=== PATIENT | female | born 1955 | race Caucasian/White ===

== ENCOUNTER 2025-07-01 11:49 | Inpatient (IN) ==
--- NOTE | 2025-07-01 12:25 | Emergency Department Note ---
Impression & Plan Acute left flank pain, Acute pyelonephritis, Hyperglycemia, Heart block ED Provider Note NAME: BEHZAD BLACKBURN AGE: 69 SEX: F : 1955 ARRIVES VIA: Walk-In INFORMANT: [Patient] ED PROVIDER(S): [John Agosto MD] CHIEF COMPLAINT: Flank pain HISTORY OF PRESENT ILLNESS: The patient is a 69-year-old female who has had 2 weeks of left flank discomfort which is now moving more to the left upper abdomen. The patient did see her doctor's office 2 days ago and was prescribed Valtrex and gabapentin for subclinical herpes zoster. The patient states that now, she thinks that she may be having more issues with constipation than anything. Her last good bowel movement was 5 days ago. She feels bloated. There has been no vomiting, no nausea, no fever, no cough or congestion or chest pain, no urinary complaints. Of note, the patient's blood sugars have been erratic lately, sometimes the values are relatively normal, sometimes they are over 300. PMHx/PSHx/Social Hx: See Below PHYSICAL EXAM: GENERAL: Patient is in no acute distress. HEENT: No acute trauma, normocephalic atraumatic, mucous membranes moist, no nasal congestion. NECK: No stridor, no adenopathy, no meningismus, trachea is midline. LUNGS: Clear to auscultation bilaterally, no wheeze, no rhonchi, breath sounds equal. HEART: 3/6 systolic murmur, regular rate and rhythm. ABDOMEN: Soft, mildly diffusely tender. EXTREMITIES: No cyanosis, full range of motion of all the joints without pain or difficulty. NEUROLOGIC: Oriented x 3, no acute motor or sensory deficits, no focal weakness. SKIN: No jaundice, no diaphoresis. Back: No rash seen. DIFFERENTIAL DIAGNOSIS: Renal colic, herpes zoster, constipation, UTI, pyelonephritis, bowel obstruction, dehydration, among others. EMERGENCY DEPARTMENT PROCEDURES: MEDICAL DECISION MAKING: There is no leukocytosis or concerning anemia. There is a normal platelet count. No bandemia. No renal failure. Glucose was high at 420. No concerning liver enzymes elevation. No evidence for pancreatitis. ECG showed a sinus rhythm with a possible type II second-degree AV block. Cardiac enzyme testing was not consistent with acute cardiac injury. Urinalysis showed findings of infection. Abdominal and pelvis CT did not show any significant constipation, no urinary obstruction or bowel obstruction. On exam, the patient was not toxic or febrile. She was bradycardic and there was a systolic cardiac murmur heard. Patient received IV saline for hydration. She received IV ceftriaxone for the pyelonephritis, she was given IV Tylenol. I did speak with cardiology regarding the ECG findings, for now, monitoring is all that is required, no need for emergent cardiac intervention. I did speak with the patient about her findings, I do think a hospital stay for further cardiac monitoring and IV antibiotic therapy is warranted. I suspect the patient's blood sugar will decrease with her IV fluids and with treatment of her infection. I spoke with case management, the on-call hospitalist was consulted. Prior/Outside records/notes reviewed: None ECG per my interpretation: Indication was abdominal pain. The ECG shows a sinus rhythm with a 2-1 AV conduction with a rate of 49. There is a type II second-degree AV block. There is an incomplete right bundle branch block. LVH is present. 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 No acute ST elevation, no PVCs. The QTc is 401. No previous ECGs for comparison. Continuous Cardiac Monitoring per my interpretation: An order was placed for continuous cardiac monitoring. The monitor shows a rate of 52 with a 2-1 second-degree type II AV block. Imaging/x-ray results per my interpretation: Chronic Medical/Social conditions affecting care: Advanced age. Care/Management discussed with: Cardiology-Dr. Ling. Case management and the on-call hospitalist. Level of care consideration(s): After review of the information above and other included data: --I believe the patient requires escalation of care to admission DISPOSITION: Admission Past Med/Surg History Problem List Heart block (Acute) Hyperglycemia (Acute) Acute pyelonephritis (Acute) Acute left flank pain (Acute) Encounter for pre-operative examination Medical History Nausea and vomiting after administration of anesthetic agent Hx of cataract bilat. Hypertension History of COVID-19 10/2021, q-care test, "sinus symptoms, mild">resolved Rheumatoid arthritis Diabetes mellitus, type 2 Surgical History History of Descemet membrane endothelial keratoplasty (DMEK) RT/LT History of cataract surgery left/right Hx of arthroscopy of knee bilat. Hx of total hysterectomy with removal of both tubes and ovaries Hx of section x4 Hx of appendectomy S/P epidural steroid injection x3 in back History of esophagogastroduodenoscopy (EGD) Hx of colonoscopy Social History Smoking Status: Never smoker Second Hand Exposure: Yes (parent smoked); Do You Dip or Chew Tobacco: No; Hx Alcohol Use: No Hx Substance Use: No Preferred Language: Georgian Communication Ability: Effective Senior Solutions Engineer Required: No Beliefs That Will Affect Care: None Current Living Situation: Spouse Feels Safe at Home: Yes Assistive Devices: Denture - Upper, Denture - Lower and Glasses Allergies Allergies Allergy/AdvReac Type Severity Reaction Status Date / Time No Known Drug Allergies Allergy Verified 07/29/22 06:21 Home Meds Home Medications Medication Instructions Recorded Confirmed aspirin 81 mg chewable tablet 81 mg PO QAM 02/16/22 07/29/22 glipizide 10 mg tablet, extended 10 mg PO BID 02/16/22 07/29/22 release 24 hr insulin glargine 100 unit/mL (3 14 unit subcut HS 02/16/22 07/29/22 mL) subcutaneous pen (Lantus Solostar U-100 Insulin) losartan 50 mg tablet 50 mg PO QAM 02/16/22 07/29/22 metformin 1,000 mg tablet 1,000 mg PO BID 02/16/22 07/29/22 multivitamin 1 tab PO QAM 02/16/22 07/29/22 rosuvastatin 10 mg tablet 10 mg PO HS 02/16/22 07/29/22 sulfasalazine 500 mg 0.5 g PO BID 02/16/22 07/29/22 tablet,delayed release turmeric 400 mg capsule 400 mg PO QAM 02/16/22 07/29/22 Results & Data (ED) Vital Signs Vital Signs - 24 hr 07/01/25 11:49 07/01/25 11:49 07/01/25 12:32 Temperature 36.6 C Temperature Source Temporal Artery Scan Pulse Rate 52 L 54 L Pulse Rate [Left Apical] Pulse Rhythm Regular Respiratory Rate 18 18 18 Respiratory Effort / Characteristics Respiratory Depth Respiratory Pattern Blood Pressure 108/46 L Blood Pressure [Left Arm] Blood Pressure [Right Arm] Blood Pressure Mean 66 Blood Pressure Mean [Left Arm] Blood Pressure Mean [Right Arm] Blood Pressure Position [Left Arm] Pulse Oximetry 97 95 Oxygen Delivery Method Room Air Room Air Sepsis Recent Fever Within 48 Hours No Sepsis New/Unexplained Change in Mental Status N/A Sepsis Action Taken by Nursing No Action Required 07/01/25 12:49 07/01/25 12:53 07/01/25 13:00 Temperature Temperature Source Pulse Rate 48 L 49 L Pulse Rate [Left Apical] 49 L Pulse Rhythm Respiratory Rate 19 14 Respiratory Effort / Characteristics Non-Labored Spontaneous Respiratory Depth Normal Respiratory Pattern Regular Blood Pressure 145/60 H Blood Pressure [Left Arm] 144/58 H Blood Pressure [Right Arm] Blood Pressure Mean 88 Blood Pressure Mean [Left Arm] 86 Blood Pressure Mean [Right Arm] Blood Pressure Position [Left Arm] Pulse Oximetry 96 96 Oxygen Delivery Method Room Air Room Air Sepsis Recent Fever Within 48 Hours Sepsis New/Unexplained Change in Mental Status Sepsis Action Taken by Nursing 07/01/25 13:21 07/01/25 13:30 07/01/25 14:10 Temperature Temperature Source Pulse Rate 49 L 48 L Pulse Rate [Left Apical] 49 L Pulse Rhythm Respiratory Rate 18 14 23 Respiratory Effort / Characteristics Non-Labored Spontaneous Respiratory Depth Normal Respiratory Pattern Regular Blood Pressure 142/59 H Blood Pressure [Left Arm] 143/73 H Blood Pressure [Right Arm] Blood Pressure Mean 86 Blood Pressure Mean [Left Arm] 96 Blood Pressure Mean [Right Arm] Blood Pressure Position [Left Arm] Semi-fowlers Pulse Oximetry 96 96 95 Oxygen Delivery Method Room Air Room Air Room Air Sepsis Recent Fever Within 48 Hours Sepsis New/Unexplained Change in Mental Status Sepsis Action Taken by Nursing 07/01/25 14:30 07/01/25 14:58 07/01/25 15:02 Temperature Temperature Source Pulse Rate 48 L 47 L Pulse Rate [Left Apical] 46 L Pulse Rhythm Respiratory Rate 22 16 23 Respiratory Effort / Characteristics Non-Labored Spontaneous Respiratory Depth Normal Respiratory Pattern Regular Blood Pressure 151/66 H Blood Pressure [Left Arm] 163/74 H Blood Pressure [Right Arm] Blood Pressure Mean 82 Blood Pressure Mean [Left Arm] 103 Blood Pressure Mean [Right Arm] Blood Pressure Position [Left Arm] Pulse Oximetry 97 95 96 Oxygen Delivery Method Room Air Room Air Room Air Sepsis Recent Fever Within 48 Hours Sepsis New/Unexplained Change in Mental Status Sepsis Action Taken by Nursing 07/01/25 15:33 Temperature Temperature Source Pulse Rate Pulse Rate [Left Apical] 48 L Pulse Rhythm Respiratory Rate 20 Respiratory Effort / Characteristics Non-Labored Spontaneous Respiratory Depth Normal Respiratory Pattern Regular Blood Pressure Blood Pressure [Left Arm] Blood Pressure [Right Arm] 152/78 H Blood Pressure Mean Blood Pressure Mean [Left Arm] Blood Pressure Mean [Right Arm] 102 Blood Pressure Position [Left Arm] Pulse Oximetry 97 Oxygen Delivery Method Room Air Sepsis Recent Fever Within 48 Hours Sepsis New/Unexplained Change in Mental Status Sepsis Action Taken by [facility] Medications Current Medication List: was personally reviewed by me Laboratory Data Attestation: I reviewed the patient's lab results. 07/01/25 12:25 07/01/25 12: Lab Results 07/01/25 07/01/25 07/01/25 Range/Units 12:10 12: 15:31 WBC 9.04 (4.8-10.8) K/ul RBC 4.49 (4.20-5.40) M/uL Hgb 12.6 (12.0-16.0) g/dL Hct 38.4 (37.0-47.0) % MCV 85.5 (80.0-100.0) fL MCH 28.1 (25.0-34.0) pg MCHC 32.8 (32.0-36.0) g/dL RDW Std Deviation 37.0 (36.4-46.3) fL RDW Coeff of David 12.0 (11.5-14.5) % Plt Count 264 (130-400) K/uL MPV 10.1 (9.4-12.4) fL Immature Gran % (Auto) 0.3 % Neut % (Auto) 70.4 % Lymph % (Auto) 18.9 % Karnes % (Auto) 9.1 % Eos % (Auto) 1.0 % Baso % (Auto) 0.3 % Neut # (Auto) 6.36 (1.40-6.50) K/uL Lymph # (Auto) 1.71 (1.20-3.40) K/uL [place] # (Auto) 0.82 H (0.11-0.59) K/uL Eos # (Auto) 0.09 (0.00-0.50) K/uL Baso # (Auto) 0.03 (0.00-0.20) K/uL Immature Gran # (Auto) 0.03 (0.01-0.20) K/uL Sodium 136 (136-145) mmol/L Potassium 4.1 (3.5-5.1) mmol/L Chloride 102 (98-107) mmol/L Carbon Dioxide 25 (21-32) mmol/L Anion Gap 9 (3-11) BUN 16 (6-23) mg/dl Creatinine 0.82 (0.6-1.2) mg/dl Est Cr Clr Drug Dosing 56.6 ml/min eGFR 76.43 BUN/Creatinine Ratio 19.5 (10-20) Glucose 420 H* (70-99(Fasting)) mg/dl POC Glucose 260 H (70-99) mg/dl Calcium 9.2 (8.6-10.3) mg/dl Total Bilirubin 0.4 (0.2-1.0) mg/dl AST 11 L (13-39) U/L ALT 28 (7-52) U/L Alkaline Phosphatase 47 (34-104) U/L Troponin I High Sens 6.1 (0-14) pg/ml Total Protein 7.0 (6.0-8.3) gm/dl Albumin 4.4 (3.4-5.0) gm/dl Globulin 2.6 (2.5-4.0) gm/dl Albumin/Globulin Ratio 1.7 (0.9-2) Lipase 23 (11-82) U/L Urine Color Yellow Urine Appearance Cloudy A (Clear) Urine pH 5.0 (4.5-7.5) Ur Specific [place] 1.020 (1.000-1.030) Urine Protein 1+ H (Negative) Urine Glucose (UA) 1+ H (Negative) Urine Ketones Trace H (Negative) Urine Blood Negative (Negative) Urine Nitrite Negative (Negative) Urine Bilirubin Negative (Negative) Urine Urobilinogen Negative (Negative) Ur Leukocyte Esterase 3+ H (Negative) Urine WBC (Auto) >50 H (0-5) /hpf Urine RBC (Auto) 3-5 H (0-2) /hpf U Hyaline Cast (Auto) 0-2 (0-2) /lpf U Epithel Cells (Auto) >20 H (0-2) /hpf Urine Bacteria (Auto) 3+ H (None Seen) Urine Yeast Present A (None Prsent) Urine Comment Administered Medications Discontinued Medications Sodium Chloride (Nss) 1,000 mls @ 999 mls/hr IV .Q1H1M STA Stop: 07/01/25 13:21 Last Infusion: 07/01/25 13:23 Dose: Infused Documented By: Admin: 07/01/25 12:29 Dose: 999 mls/hr Documented By: NOLAN Acetaminophen (Ofirmev) 1,000 mg in 100 mls @ 400 mls/hr IV NOW STA Stop: 07/01/25 12:35 Last Infusion: 07/01/25 13:07 Dose: Infused Documented By: Admin: 07/01/25 12:29 Dose: 400 mls/hr Documented By: NOLAN Ceftriaxone Sodium (Rocephin) 2,000 mg in 50 mls @ 100 mls/hr IV NOW STA Stop: 07/01/25 13:34 Last Infusion: 07/01/25 14:20 Dose: Infused Documented By: [facility] Admin: 07/01/25 13:44 Dose: 100 mls/hr Documented By: BREONNA Ioversol (Optiray 320 100ml) 94 ml IV ONCE ONE Stop: 07/01/25 13:37 Last Admin: 07/01/25 13:36 Dose: 94 ml Documented By: Imaging Data Radiologist's Impression: Abdomen/Pelvis CT 07/01/25 12:22 INDICATION: Left-sided abdominal pain COMPARISON: None TECHNIQUE: Contiguous axial CT images were obtained through the abdomen and pelvis. Dose reduction according to patient size and/or automated exposure control techniques have been utilized for this exam. FINDINGS: CT ABDOMEN: LUNG BASES: Minor scarring changes at the lung bases. Bronchiectasis.Small hiatal hernia. LIVER: No worrisome hepatic lesions. SPLEEN: Unremarkable. GALLBLADDER: Unremarkable. KIDNEYS: No hydronephrosis or nephrolithiasis. No solid renal lesions. PANCREAS: Unremarkable. ADRENAL GLANDS: Unremarkable. PROXIMAL BOWEL: No small bowel obstruction. RETROPERITONEUM: No AAA. No significant lymphadenopathy. OTHER: No abscess. CT PELVIS: URINARY BLADDER: Unremarkable. PELVIC ORGANS: Uterus not visualized. DISTAL BOWEL: [id number] stool in the colon. Appendix not visualized. OTHER: No significant lymphadenopathy. There is no free pelvic fluid. IMPRESSION: No acute pathology. Electronically signed by Portia Arboleda 07-01-2025 2:05 PM Discharge Plan Visit Data Chief Complaint: Flank Pain Stated Complaint: L FLANK PAIN, CONSTIPATION ED Provider: John Agosto Discharge Problem: Acute left flank pain, Acute pyelonephritis, Hyperglycemia, Heart block Patient Disposition: Admitted As Inpatient Condition: Fair Discharge Instructions Interventions: ED Discharge Assessment Last Done: 07/01/25 15:39 Prescriptions Prescriptions: No Action multivitamin Tablet 1 tab PO QAM losartan 50 mg Tablet 50 mg PO QAM glipizide 10 mg Tablet Extended Release 24hr 10 mg PO BID sulfasalazine 500 mg Tablet,Delayed Release (Dr/Ec) 0.5 g PO BID metformin 1,000 mg Tablet 1,000 mg PO BID aspirin 81 mg Tablet,Chewable 81 mg PO QAM rosuvastatin 10 mg Tablet 10 mg PO HS insulin glargine [Lantus Solostar U-100 Insulin] 100 unit/mL (3 mL) Insulin Pen 14 unit SUBCUT HS turmeric 400 mg Capsule 400 mg PO QAM
[2025-07-01] MEDS: ACETAMINOPHEN 1,000 MG/100 ML VIAL IV STA (12:29)
[2025-07-01] MEDS: SODIUM CHLORIDE 0.9% 1,000 ML IV STA (12:29)
[2025-07-01 12:38] LABS: Hematocrit (blood only) 38.4 % (37.0-47.0); Hemoglobin 12.6 g/dL (12.0-16.0); Immature Granulocytes # (auto) 0.03 K/uL (0.01-0.20); Immature Granulocytes % (auto) 0.3 %; Mean Corpuscular Hemoglobin 28.1 pg (25.0-34.0); Mean Corpuscular Volume 85.5 fL (80.0-100.0); Platelet Count 264 K/uL (130-400); RDW Standard Deviation 37.0 fL (36.4-46.3); Red Blood Count 4.49 M/uL (4.20-5.40); White Blood Count 9.04 K/ul (4.8-10.8)
[2025-07-01 12:45] LABS: Appearance Urine Cloudy (Clear); Bacteria Urine Automated 3+ (None Seen); Epithelial Cell Urine Auto >20 /hpf (0-2); Glucose Urine UA 1+ (Negative); WBC Urine Automated >50 /hpf (0-5)
[2025-07-01 12:55] LABS: Cast Urine Automated 0-2 /lpf (0-2)
[2025-07-01 13:07] LABS: Alanine Aminotransferase 28.0 U/L (7-52); Albumin Globulin Ratio 1.7 (0.9-2); Albumin Level 4.4 gm/dl (3.4-5.0); Alkaline Phosphatase 47.0 U/L (34-104); Anion Gap 9.0 (3-11); Bilirubin,Total 0.4 mg/dl (0.2-1.0); Blood Urea Nitrogen 16.0 mg/dl (6-23); Calcium 9.2 mg/dl (8.6-10.3); Carbon Dioxide 25.0 mmol/L (21-32); Chloride 102.0 mmol/L (98-107); Creatinine Clr Calc Pharmacy 56.6 ml/min; Globulin 2.6 gm/dl (2.5-4.0); Glucose 420.0 mg/dl (70-99(Fasting)); Lipase 23.0 U/L (11-82); Potassium 4.1 mmol/L (3.5-5.1); Sodium 136.0 mmol/L (136-145); Total Protein 7.0 gm/dl (6.0-8.3)
[2025-07-01] MEDS: OPTIRAY 320 100ml IV ONE (13:36)
[2025-07-01] MEDS: cefTRIAXone SODIUM 2,000 MG/50 ML BAG IV STA (13:44)
--- NOTE | 2025-07-01 14:05 | CT Scan Report ---
INDICATION: Left-sided abdominal pain COMPARISON: None TECHNIQUE: Contiguous axial CT images were obtained through the abdomen and pelvis. Dose reduction according to patient size and/or automated exposure control techniques have been utilized for this exam. FINDINGS: CT ABDOMEN: LUNG BASES: Minor scarring changes at the lung bases. Bronchiectasis.Small hiatal hernia. LIVER: No worrisome hepatic lesions. SPLEEN: Unremarkable. GALLBLADDER: Unremarkable. KIDNEYS: No hydronephrosis or nephrolithiasis. No solid renal lesions. PANCREAS: Unremarkable. ADRENAL GLANDS: Unremarkable. PROXIMAL BOWEL: No small bowel obstruction. RETROPERITONEUM: No AAA. No significant lymphadenopathy. OTHER: No abscess. CT PELVIS: URINARY BLADDER: Unremarkable. PELVIC ORGANS: Uterus not visualized. DISTAL BOWEL: [id number] stool in the colon. Appendix not visualized. OTHER: No significant lymphadenopathy. There is no free pelvic fluid. IMPRESSION: No acute pathology. Electronically signed by Portia Arboleda 07-01-2025 2:05 PM
--- NOTE | 2025-07-01 15:01 | History & Physical Report ---
Date of Service July 01, 2025 Assessment & Plan (1) Heart block: (2) Hyperglycemia: (3) Acute left flank pain: (4) Diabetes mellitus, type 2: Plan #mobitz II -asymptomatic at rest, but does sound like sx c/w symptomatic pat w exertion -keep on monitor - transcutaneous pads at the ready -ask for cardiology eval #back pain/flank pain -R sided pain "internal shingles" also tracks along paraspinals not dermatome, and is most reproducible over rib head; L sided pain very tender to palpation on paraspinals but not with CVA percussion (and no infectious s/s, no UTI s/s, UA (+) of less yield then since asymptomatic bacteriuria is so common, kidney does not light up on CT --> i do not believe she has pyelo - treat as muscular and follow clinically) -tylenol, toradol, dilauded for pain -mag sulfate IV for muscle relaxant -voltaren gel QID #constipation -might be contributing to L flank pain a little -miralax - and then roll into chronic miralax regimen #uncontrolled DM2 -check A1c; fingersticks and build basal-bolus regimen -d/w pt "why to care" (high sugars clog arteries) and that the bulk of DM control comes from minimizing simple/starchy/sugary carbs in diet as even more important than adjusting meds #DVT proph -lovenox History of Present Illness Chief Complaint: L flank pain Primary Care Provider: ELIOT Huerta several different issues but primary reason she came to ER was L flank pain. notes that at first about 2 weeks ago she had R sided mid back sharp stabbing pain - her PCP wondered if it was going to evolve into shingles and started valtred. "they told me the shingles went inside instead" but then she noted that the pain on the R side evolved down her paraspinals, not across a dermato me. and no rash has evolved despite that pain being there for ~2wks. then last ~1-2 days (hard to get total clarity from her story) she started with left back/flank pain - sharp stabbing and intense - movement makes it worse. 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 no fevers, chills sweats no dysuria/frequency/urgency does have constipation - notes that she won't have BM for ~3-4 days then takes ex-lax, then has BM, then repeat cycle sugars running high for quite a while. does not know what last A1c was - but notes fastings often ~70-110, but then the rest of the day she'll frequently cross 300 or more. quick diet recall yields a lot of simple carbs. also found to be in Mobitz II. told er doc she gets significant BRIDGES going up steps Allergies Allergy/AdvReac Type Severity Reaction Status Date / Time No Known Drug Allergies Allergy Verified 07/29/22 06:21 Home Medications Medication Instructions Recorded Confirmed Type aspirin 81 mg chewable tablet 81 mg PO QAM 02/16/22 07/29/22 History glipizide 10 mg tablet, extended 10 mg PO BID 02/16/22 07/29/22 History release 24 hr insulin glargine 100 unit/mL (3 14 unit subcut HS 02/16/22 07/29/22 History mL) subcutaneous pen (Lantus Solostar U-100 Insulin) losartan 50 mg tablet 50 mg PO QAM 02/16/22 07/29/22 History metformin 1,000 mg tablet 1,000 mg PO BID 02/16/22 07/29/22 History multivitamin 1 tab PO QAM 02/16/22 07/29/22 History rosuvastatin 10 mg tablet 10 mg PO HS 02/16/22 07/29/22 History sulfasalazine 500 mg 0.5 g PO BID 02/16/22 07/29/22 History tablet,delayed release turmeric 400 mg capsule 400 mg PO QAM 02/16/22 07/29/22 History Past Med/Surg History Problem List Heart block (Acute) Hyperglycemia (Acute) Acute pyelonephritis (Acute) Acute left flank pain (Acute) Encounter for pre-operative examination Medical History Nausea and vomiting after administration of anesthetic agent Hx of cataract bilat. Hypertension History of COVID-19 10/2021, q-care test, "sinus symptoms, mild">resolved Rheumatoid arthritis Diabetes mellitus, type 2 Surgical History History of Descemet membrane endothelial keratoplasty (DMEK) RT/LT History of cataract surgery left/right Hx of arthroscopy of knee bilat. Hx of total hysterectomy with removal of both tubes and ovaries Hx of section x4 Hx of appendectomy S/P epidural steroid injection x3 in back History of esophagogastroduodenoscopy (EGD) Hx of colonoscopy Social History Smoking Status: Never smoker Second Hand Exposure: Yes (parent smoked); Do You Dip or Chew Tobacco: No; Hx Alcohol Use: No Hx Substance Use: No Preferred Language: Brazilian Communication Ability: Effective Nursing Tech Required: No Beliefs That Will Affect Care: None Current Living Situation: Spouse Feels Safe at Home: Yes Assistive Devices: Denture - Upper, Denture - Lower and Glasses Review of Systems Review of Systems: All systems reviewed & are unremarkable except as noted in HPI & below Physical Exam Physical Exam: gen aaox3 pleasantly anxious, nad. heent nc at mmm. cardio pat without notab le r/m/g. appears to have blocked atrial beats on monitor and EKG. lungs cta no r/r/w good effort skin no rashes no pallor or icterus neuro cn 2-12 grossly intact gross motor/sensory intact. skin no rashes no pallor no icterus. no rashes in areas in question for pain. MSK - R back pain imminently reproducible with palpation on rib head ~8th on R - slightly bulged and surrounding muscle hypertophy and tenderness. Left - NO CVA tenderness to percussion, but does have imminently reproducible pain to palpation in intercostal muscles, which feel tense Results & Data Results & Data Vital Signs (Past 12 Hours) Vital Signs Temp Pulse Pulse Resp BP BP Pulse Ox 07/01/25 14:58 46 L 16 163/74 H 95 07/01/25 14:30 48 L 22 97 07/01/25 14:10 49 L 23 143/73 H 95 07/01/25 13:30 48 L 14 142/59 H 96 07/01/25 13:21 49 L 18 96 07/01/25 13:00 49 L 14 145/60 H 96 07/01/25 12:53 48 L 07/01/25 12:49 49 L 19 144/58 H 96 07/01/25 12:32 54 L 18 95 07/01/25 11:49 18 07/01/25 11:49 97.9 F 52 L 18 108/46 L 97 O2 Del Method 07/01/25 14:58 Room Air 07/01/25 14:30 Room Air 07/01/25 14:10 Room Air 07/01/25 13:30 Room Air 07/01/25 13:21 Room Air 07/01/25 13:00 Room Air 07/01/25 12:53 07/01/25 12:49 Room Air 07/01/25 12:32 Room Air 07/01/25 11:49 07/01/25 11:49 Room Air Code Status & VTE Plan VTE Prophylaxis Plan VTE Prophylaxis will be ordered: Yes PG Care Time/CCT Total # of Minutes Spent Total Time Spent with Patient: Total time spent is greater than 50% in coordination of care (as documented) at patient's floor/unit and/or counseling patient: Coding Level of Care Code 26949 INT INP/OBS CARE 3/75MIN Diagnoses Heart block I45.9 Hyperglycemia R73.9 Acute left flank pain R10.A2 Diabetes mellitus, type 2 E11.9
[2025-07-01] MEDS ORDERED: ALUMINUM/MAGNESIUM SUSP 30 ML UDC PO PRN (16:04)
[2025-07-01] MEDS ORDERED: HYDROmorphone INJ 0.5 MG/0.5 ML SYR IV PRN (16:04)
[2025-07-01] MEDS ORDERED: MELATONIN 3 MG TAB PO PRN (16:04)
[2025-07-01] MEDS ORDERED: MAGNESIUM HYDROXIDE SUSP 30 ML UDC PO PRN (16:04)
[2025-07-01] MEDS: LANTUS PER UNIT CHARGE SQ ONE (17:34)
[2025-07-01] MEDS: INSULIN ASPART PER UNIT CHARGE SC SCH (17:34)
[2025-07-01] MEDS: POLYETHYLENE (MIRALAX) 17 GM PACK PO ONE (17:35)
[2025-07-01] MEDS: MAGNESIUM SULFATE / D5W 1 GM/100 ML BAG IV SCH (17:35)
[2025-07-01] MEDS: ENOXAPARIN INJ 40 MG/0.4 ML SYR SQ SCH (17:36)
[2025-07-01] MEDS: DICLOFENAC SOD 1% GEL 100 GM TUBE EXT SCH (17:37)
[2025-07-01] MEDS: KETOROLAC TROMETHAMINE 15 MG/ML VIAL IV PRN (17:55)
[2025-07-01] MEDS ORDERED: CARBOHYDRATES FOR HYPOGLYCEMIA PO PRN (19:30)
[2025-07-01] MEDS ORDERED: GLUCOSE 10 TAB/TUBE PO PRN (19:30)
[2025-07-01] MEDS ORDERED: DEXTROSE 50% 50 ML SYRINGE IV PRN (19:30)
[2025-07-01] MEDS ORDERED: GLUCOSE 40% GEL 15 GM TUBE PO PRN (19:30)
[2025-07-01] MEDS ORDERED: GLUCAGON FOR INJ 1 MG VIAL SQ PRN (19:30)
[2025-07-01] MEDS: ACETAMINOPHEN 325 MG TAB PO SCH (20:16)
[2025-07-01] MEDS: ROSUVASTATIN CALCIUM 10 MG TAB PO SCH (20:18)
[2025-07-01] MEDS: POLYETHYLENE (MIRALAX) 17 GM PACK PO SCH (20:19)
[2025-07-01] MEDS: LANTUS PER UNIT CHARGE SQ SCH (21:55)
[2025-07-02 07:03] LABS: Hematocrit (blood only) 37.8 % (37.0-47.0); Hemoglobin 12.6 g/dL (12.0-16.0); Immature Granulocytes # (auto) 0.04 K/uL (0.01-0.20); Immature Granulocytes % (auto) 0.4 %; Mean Corpuscular Hemoglobin 28.5 pg (25.0-34.0); Mean Corpuscular Volume 85.5 fL (80.0-100.0); Platelet Count 243 K/uL (130-400); RDW Standard Deviation 37.1 fL (36.4-46.3); Red Blood Count 4.42 M/uL (4.20-5.40); White Blood Count 9.38 K/ul (4.8-10.8)
[2025-07-02 07:28] LABS: Anion Gap 7.0 (3-11); Blood Urea Nitrogen 15.0 mg/dl (6-23); Calcium 9.2 mg/dl (8.6-10.3); Carbon Dioxide 28.0 mmol/L (21-32); Chloride 103.0 mmol/L (98-107); Creatinine Clr Calc Pharmacy 61.5 ml/min; Glucose 108.0 mg/dl (70-99(Fasting)); Potassium 4.3 mmol/L (3.5-5.1); Sodium 138.0 mmol/L (136-145)
[2025-07-02] MEDS ORDERED: DEXTROSE 50% 50 ML SYRINGE IV PRN (07:48)
[2025-07-02] MEDS ORDERED: GLUCOSE 40% GEL 15 GM TUBE PO PRN (07:48)
[2025-07-02] MEDS ORDERED: GLUCAGON FOR INJ 1 MG VIAL SQ PRN (07:48)
[2025-07-02] MEDS ORDERED: CARBOHYDRATES FOR HYPOGLYCEMIA PO PRN (07:48)
[2025-07-02] MEDS ORDERED: GLUCOSE 10 TAB/TUBE PO PRN (07:48)
[2025-07-02 07:56] LABS: Hemoglobin A1C 12.4 % (4.5-5.6)
[2025-07-02] MEDS: LANTUS PER UNIT CHARGE SQ SCH (08:57)
[2025-07-02] MEDS: ASPIRIN 81 MG CHEW PO SCH (08:58)
--- NOTE | 2025-07-02 09:57 | Hospitalist Progress Note ---
Date of Service July 02, 2025 Assessment & Plan (1) Heart block: Plan: EKG appears to be atrial bigeminy with a blocked second atrial beat. Free T3 and free T4 levels are pending along with a cardiac echo. Cardiology consultation requested and pending. Continue telemetry. (2) Hyperglycemia: Plan: Nonfasting glucose was elevated on admission. Glucose this morning, July 02, was only 108. Hemoglobin A1c level is pending. Continue sliding scale coverage and ADA diet while hospitalized (3) Acute left flank pain: Plan: Could be due to constipation. No evidence of ureteral calculus seen on admission CT scan. (4) Diabetes mellitus, type 2: Plan: ADA diet. Sliding scale coverage. Basal insulin therapy. Plan Hopeful discharge to home tomorrow, July 03 Admission and Anticipated Discharge Date Admission Date: July 01, 2025 Subjective Alert and oriented. EKG appears to be more consistent with atrial bigeminy with a blocked conduction of the second atrial beat. Does not appear to be classic Mobitz type II second degree AV block. Cardiology consultation is pending. Free T3 and free T4 levels are ordered and pending along with a cardiac echo. Await cardiology recommendations. She continues to have left flank pain but it is intermittent and may be due to underlying constipation. Symptoms are not consistent with ureteral calculus nor does she have any evidence of this on CT scan done on admission. Review of Systems 2 Review of Systems: Constitutionalno fever or chills ENTno blurred vision, no double vision, no epistaxis, no sore throat Respiratoryno cough, no wheezing, no shortness of breath Cardiacno palpitations, no chest pain, no syncope Nelida nausea, vomiting, diarrhea, melena, hematochezia. Constipation. Intermittent left-sided abdominal discomfort GUno urinary retention, no urinary incontinence, no dysuria, no hematuria Musculoskeletalno joint pain, no muscle tenderness Skinno bruising, no rashes, no pruritus Neurono isolated weakness, no paresthesia, no weakness Psychno depression, no anxiety Physical Exam 2 Physical Exam: General-alert and oriented x3, no fever, no chills HEENT-head atraumatic and normocephalic, pupils equal and reactive to light, extraocular muscles intact Neck-no lymphadenopathy or thyromegaly, trachea midline Chest-clear to auscultation. No rales, wheezing or rhonchi Cardiac-regular rate and rhythm, normal S1 and S2 Abdomen-normal bowel sounds, no hepatosplenomegaly. No rebound or guarding. No palpable masses Extremities-no cyanosis, clubbing, or edema Neuro-cranial nerves II through XII intact, motor and sensory function within normal limits, strength symmetrical, no focal deficits Psych-normal affect, normal mood Results & Data Results & Data Vital Signs (Past 12 Hours) Vital Signs Temp Pulse Pulse Resp BP BP Pulse Ox 07/02/25 07:00 42 L 07/02/25 07:00 36.7 C 50 L 16 127/75 97 07/02/25 03:59 36.5 C 50 L 17 106/48 L 95 07/02/25 00:10 36.7 C 46 L 18 150/74 H 96 07/01/25 22:47 46 L O2 Del Method 07/02/25 07:00 07/02/25 07:00 Room Air 07/02/25 03:59 Room Air 07/02/25 00:10 Room Air 07/01/25 22:47 Laboratory Results 07/02/25 06:11 07/02/25 06:11 PG Care Time/CCT Total # of Minutes Spent Total Time Spent with Patient: Total time spent is greater than 50% in coordination of care (as documented) at patient's floor/unit and/or counseling patient: Coding Level of Care Code 05355 SUB INP/OBS CARE 3/50MIN Diagnoses Heart block I45.9 Hyperglycemia R73.9 Acute left flank pain R10.A2 Diabetes mellitus, type 2 E11.9
--- NOTE | 2025-07-02 10:04 | Electrocardiogram Report ---
Test Reason : Blood Pressure : */* mmHG Vent. Rate : 49 BPM Atrial Rate : 98 BPM P-R Int : 168 ms QRS Dur : 110 ms QT Int : 444 ms P-R-T Axes : 67 -54 27 degrees QTcB Int : 401 ms Sinus rhythm with 2nd degree A-V block with 2:1 A-V conduction Left axis deviation Incomplete right bundle branch block Minimal voltage criteria for LVH, may be normal variant possible Inferior infarct , age undetermined Poor R wave progression, consider anterior AR vs. lead placement vs. LVH Abnormal ECG No previous ECGs available Confirmed by Hilton Wood ([id number]) on 07/02/2025 10:03:56 AM Referred By: REFERRED SELF Confirmed By: Hilton Wood
--- NOTE | 2025-07-02 10:41 | Cardiology Consultation ---
Date of Consultation July 02, 2025 Assessment & Plan (1) Heart block: Plan 1. Heart block: I think Mobitz 2 conduction is the appropriate diagnosis. 2 1 heart block on EKG and telemetry, but no improvement in heart rate with activity. She also has symptoms consistent with higher degree AV block and associated bradycardia. Will check Lyme serologies. In the absence of Lyme disease or serious thyroid abnormality I think a permanent pacemaker is appropriate. I did discuss this with the patient today including the risks benefits and alternatives to the procedure. I recommended she stay in the hospital and to this can be accomplished, likely tomorrow at this point. 2. Mitral regurgitation: He was discovered to have fairly significant mitral regurgitation on her echocardiogram. Normal LV systolic function. Chamber dimensions still relatively normal. Will need to follow this over time. History of Present Illness Reason for Consultation: Heart block, bradycardia Requesting Physician: Funmilayo Attending Physician: Tony Sandoval MD History of Present Illness The patient is a 69-year-old woman without a known history of cardiac disease who presented to the hospital primarily for left flank discomfort. The patient states that she is been having some discomfort now for a few weeks. It is fairly well localized and is both pruritic and painful. She has not noticed any rash at that site. She denied any constitutional symptoms such as fevers or chills. She is up to have shingles in the outpatient setting and was prescribed some treatment. However, this was not effective and she presented to the emergency room for an evaluation. In the emergency room she was noted to have bradycardia and 2-1 heart block on an EKG. The patient does report some progressive symptoms over the past few weeks of exertional intolerance, dyspnea on exertion and some mild dizziness. She has not had presyncope or syncope. She does describe some symptoms of chest pressure with activity as well. She has not been aware of any palpitations. She does not monitor her heart rate at home. She is a fairly sedentary individual but is accustomed to watching 2 grandchildren routinely. This entails some physical activity which is not strenuous. She has noticed that with ascending stairs and shopping recently she has become more short of breath and mildly dizzy. Allergies Allergy/AdvReac Type Severity Reaction Status Date / Time No Known Drug Allergies Allergy Verified 07/29/22 06:21 Home Medications Medication Instructions Recorded Confirmed Type aspirin 81 mg chewable tablet 81 mg PO QAM 02/16/22 07/29/22 History glipizide 10 mg tablet, extended 10 mg PO BID 02/16/22 07/29/22 History release 24 hr insulin glargine 100 unit/mL (3 14 unit subcut HS 02/16/22 07/29/22 History mL) subcutaneous pen (Lantus Solostar U-100 Insulin) losartan 50 mg tablet 50 mg PO QAM 02/16/22 07/29/22 History metformin 1,000 mg tablet 1,000 mg PO BID 02/16/22 07/29/22 History multivitamin 1 tab PO QAM 02/16/22 07/29/22 History rosuvastatin 10 mg tablet 10 mg PO HS 02/16/22 07/29/22 History sulfasalazine 500 mg 0.5 g PO BID 02/16/22 07/29/22 History tablet,delayed release turmeric 400 mg capsule 400 mg PO QAM 02/16/22 07/29/22 History oxycodone 5 mg tablet 5 mg PO Q6H PRN pain #20 tabs 07/04/25 Rx tramadol 50 mg tablet 50 mg PO Q4H PRN pain #20 tabs 07/04/25 Rx Patient History Medical History Nausea and vomiting after administration of anesthetic agent Hx of cataract bilat. Hypertension History of COVID-19 10/2021, q-care test, "sinus symptoms, mild">resolved Rheumatoid arthritis Diabetes mellitus, type 2 Surgical History History of Descemet membrane endothelial keratoplasty (DMEK) RT/LT History of cataract surgery left/right Hx of arthroscopy of knee bilat. Hx of total hysterectomy with removal of both tubes and ovaries Hx of section x4 Hx of appendectomy S/P epidural steroid injection x3 in back History of esophagogastroduodenoscopy (EGD) Hx of colonoscopy Social History Smoking Status: Never smoker Second Hand Exposure: Yes (parent smoked); Do You Dip or Chew Tobacco: No; Hx Alcohol Use: No Hx Substance Use: No Preferred Language: Danish Communication Ability: Effective Child Nurse Required: No Beliefs That Will Affect Care: None Current Living Situation: Family Feels Safe at Home: Yes Assistive Devices: None Review of Systems Review of Systems: Per HPI. No recent fevers or chills. No joint pains. No rashes. Const ipation. Physical Exam Physical Exam: She is alert and oriented x3. Mood affect appear normal. She answered all questions appropriately. HEENT: Sclerae are anicteric. Pupils are equal and reactive to light and accommodation. Extraocular movements were intact. Neuro: Cranial nerves intact Lungs: Lungs are clear to auscultation bilaterally. There are no rales wheezes or rhonchi. She has normal respiratory effort without use of accessory muscles. There is normal pulmonary excursion. Cardiac: The rhythm was regular. S1 and S2 were normal. Holosystolic murmur. The PMI was not markedly displaced on palpation. Extremities: Patient has bilateral radial pulses that are equal in intensity. There is no evidence cyanosis or clubbing. There was no evidence of significant peripheral edema bilaterally. Skin: There are no rashes noted on examination today. Results & Data Vital Signs (Past 12 Hours) Vital Signs Temp Pulse Pulse Resp BP BP Pulse Ox 07/02/25 07:00 42 L 07/02/25 07:00 36.7 C 50 L 16 127/75 97 07/02/25 03:59 36.5 C 50 L 17 106/48 L 95 07/02/25 00:10 36.7 C 46 L 18 150/74 H 96 07/01/25 22:47 46 L O2 Del Method 07/02/25 07:00 07/02/25 07:00 Room Air 07/02/25 03:59 Room Air 07/02/25 00:10 Room Air 07/01/25 22:47 Laboratory Results Abnormal Lab Results 07/01/25 07/01/25 07/01/25 12:10 12: 15:31 WBC 9.04 RBC 4.49 Hgb 12.6 Hct 38.4 MCV 85.5 MCH 28.1 MCHC 32.8 RDW Std Deviation 37.0 RDW Coeff of David 12.0 Plt Count 264 MPV 10.1 Immature Gran % (Auto) 0.3 Neut % (Auto) 70.4 Lymph % (Auto) 18.9 [place] % (Auto) 9.1 Eos % (Auto) 1.0 Baso % (Auto) 0.3 Neut # (Auto) 6.36 Lymph # (Auto) 1.71 [place] # (Auto) 0.82 H Eos # (Auto) 0.09 Baso # (Auto) 0.03 Immature Gran # (Auto) 0.03 Sodium 136 Potassium 4.1 Chloride 102 Carbon Dioxide 25 Anion Gap 9 BUN 16 Creatinine 0.82 Est Cr Clr Drug Dosing 56.6 eGFR 76.43 BUN/Creatinine Ratio 19.5 Glucose 420 H* POC Glucose 260 H Estimat Average Glucose Hemoglobin A1c Calcium 9.2 Total Bilirubin 0.4 AST 11 L ALT 28 Alkaline Phosphatase 47 Troponin I High Sens 6.1 Total Protein 7.0 Albumin 4.4 Globulin 2.6 Albumin/Globulin Ratio 1.7 Lipase 23 Free T4 Free T3 3.42 Urine Color Yellow Urine Appearance Cloudy A Urine pH 5.0 Ur Specific [place] 1.020 Urine Protein 1+ H Urine Glucose (UA) 1+ H Urine Ketones Trace H Urine Blood Negative Urine Nitrite Negative Urine Bilirubin Negative Urine Urobilinogen Negative Ur Leukocyte Esterase 3+ H Urine WBC (Auto) >50 H Urine RBC (Auto) 3-5 H U Hyaline Cast (Auto) 0-2 U Epithel Cells (Auto) >20 H Urine Bacteria (Auto) 3+ H Urine Yeast Present A Urine Comment 07/01/25 07/01/25 07/01/25 16:11 16:28 20:32 WBC RBC Hgb Hct MCV MCH MCHC RDW Std Deviation RDW Coeff of David Plt Count MPV Immature Gran % (Auto) Neut % (Auto) Lymph % (Auto) [place] % (Auto) Eos % (Auto) Baso % (Auto) Neut # (Auto) Lymph # (Auto) [place] # (Auto) Eos # (Auto) Baso # (Auto) Immature Gran # (Auto) Sodium Potassium Chloride Carbon Dioxide Anion Gap BUN Creatinine Est Cr Clr Drug Dosing eGFR BUN/Creatinine Ratio Glucose POC Glucose 214 H 151 H Estimat Average Glucose 309 Hemoglobin A1c 12.4 H Calcium Total Bilirubin AST ALT Alkaline Phosphatase Troponin I High Sens Total Protein Albumin Globulin Albumin/Globulin Ratio Lipase Free T4 Free T3 Urine Color Urine Appearance Urine pH Ur Specific [place] Urine Protein Urine Glucose (UA) Urine Ketones Urine Blood Urine Nitrite Urine Bilirubin Urine Urobilinogen Ur Leukocyte Esterase Urine WBC (Auto) Urine RBC (Auto) U Hyaline Cast (Auto) U Epithel Cells (Auto) Urine Bacteria (Auto) Urine Yeast Urine Comment 07/02/25 07/02/25 06:11 07:07 WBC 9.38 RBC 4.42 Hgb 12.6 Hct 37.8 MCV 85.5 MCH 28.5 MCHC 33.3 RDW Std Deviation 37.1 RDW Coeff of David 12.0 Plt Count 243 MPV 10.3 Immature Gran % (Auto) 0.4 Neut % (Auto) 60.6 Lymph % (Auto) 28.9 [place] % (Auto) 8.0 Eos % (Auto) 1.7 Baso % (Auto) 0.4 Neut # (Auto) 5.68 Lymph # (Auto) 2.71 [place] # (Auto) 0.75 H Eos # (Auto) 0.16 Baso # (Auto) 0.04 Immature Gran # (Auto) 0.04 Sodium 138 Potassium 4.3 Chloride 103 Carbon Dioxide 28 Anion Gap 7 BUN 15 Creatinine 0.77 Est Cr Clr Drug Dosing 61.5 eGFR 82.42 BUN/Creatinine Ratio 19.5 Glucose 108 H POC Glucose 110 H Estimat Average Glucose Hemoglobin A1c Calcium 9.2 Total Bilirubin AST ALT Alkaline Phosphatase Troponin I High Sens Total Protein Albumin Globulin Albumin/Globulin Ratio Lipase Free T4 1.20 Free T3 Urine Color Urine Appearance Urine pH Ur Specific [place] Urine Protein Urine Glucose (UA) Urine Ketones Urine Blood Urine Nitrite Urine Bilirubin Urine Urobilinogen Ur Leukocyte Esterase Urine WBC (Auto) Urine RBC (Auto) U Hyaline Cast (Auto) U Epithel Cells (Auto) Urine Bacteria (Auto) Urine Yeast Urine Comment Diagnostic Findings CT of the abdomen pelvis did not reveal any acute pathology. PG Care Time/CCT Total # of Minutes Spent Total Time Spent with Patient: Total time spent is greater than 50% in coordination of care (as documented) at patient's floor/unit and/or counseling patient: Coding Level of Care Code 02810 INT INP/OBS CARE 3/75MIN Diagnoses Heart block I45.9
[2025-07-02] MEDS: INSULIN ASPART PER UNIT CHARGE SC SCH (11:59)
--- NOTE | 2025-07-02 13:30 | XCELERA ---
[id number]
[2025-07-02] MEDS: ONDANSETRON INJ 2 MG/ML 2 ML VIAL IV PRN (17:27)
[2025-07-03] MEDS: INSULIN ASPART PER UNIT CHARGE SC SCH ×2 (05:40→12:01)
[2025-07-03 06:13] LABS: Hematocrit (blood only) 33.1 % (37.0-47.0); Hemoglobin 11.2 g/dL (12.0-16.0); Immature Granulocytes # (auto) 0.02 K/uL (0.01-0.20); Immature Granulocytes % (auto) 0.2 %; Mean Corpuscular Hemoglobin 28.7 pg (25.0-34.0); Mean Corpuscular Volume 84.9 fL (80.0-100.0); Platelet Count 203 K/uL (130-400); RDW Standard Deviation 37.0 fL (36.4-46.3); Red Blood Count 3.90 M/uL (4.20-5.40); White Blood Count 8.49 K/ul (4.8-10.8)
[2025-07-03 06:29] LABS: Anion Gap 7.0 (3-11); Blood Urea Nitrogen 15.0 mg/dl (6-23); Calcium 8.8 mg/dl (8.6-10.3); Carbon Dioxide 25.0 mmol/L (21-32); Chloride 106.0 mmol/L (98-107); Creatinine Clr Calc Pharmacy 61.7 ml/min; Glucose 120.0 mg/dl (70-99(Fasting)); Potassium 4.3 mmol/L (3.5-5.1); Sodium 138.0 mmol/L (136-145)
--- NOTE | 2025-07-03 08:17 | Pre Anesthesia Assessment ---
Date of Service July 03, 2025 Pre Sedation Assessment Vital Signs Temp Pulse Pulse Pulse Resp BP Pulse Ox 07/03/25 07:50 46 L 18 134/55 L 100 07/03/25 03:02 36.7 C 44 L 18 148/64 H 93 07/02/25 23:04 36.9 C 47 L 16 135/57 L 97 07/02/25 22:59 49 L 07/02/25 19:43 36.6 C 49 L 18 134/55 L 97 07/02/25 18:43 47 L 07/02/25 14:23 36.5 C 48 L 16 155/75 H 98 07/02/25 10:41 37 C 48 L 16 153/66 H 97 O2 Del Method 07/03/25 07:50 Room Air 07/03/25 03:02 Room Air 07/02/25 23:04 Room Air 07/02/25 22:59 07/02/25 19:43 Room Air 07/02/25 18:43 07/02/25 14:23 Room Air 07/02/25 10:41 Room Air Cardiovascular + bradycardic Respiratory + respiratory effort normal Pre-Sedation Airway Assessment Smoking Status: Never smoker Hx Sleep Apnea: No Hx Difficult Intubation: No Short, Thick Neck: No Thyromental Distance: > or= 3.5 Finger Breadths Oral Cavity: + Dentures Mallampati Class: III ASA: ASA3 NPO Status Date of Last Intake of Fluids: 07/02/25 Time of Last Intake of Fluids: 21:00 Date of Last Intake of Solid Food: 07/02/25 Time of Last Intake of Solid Foods: 21:00 Procedure Planning Contraindications for Sedation: none Current Medications Reviewed: Yes Notes The planned sedation has been discussed with the patient. Informed Consent was obtained. I have identified the patient, determined the appropriateness of sedation and have assessed the patient immediately prior to the procedure. All medicine(s) and interventions are by my order.
[2025-07-03] MEDS: BUPIVACAINE 0.25% PF 30 ML VIAL ONE (08:41)
[2025-07-03] MEDS: VANCOMYCIN HCL 1000MG/20ML VIAL ONE (08:42)
[2025-07-03] MEDS: LIDOCAINE 1% LOCAL 20 ML VIAL ONE (08:42)
[2025-07-03] MEDS: WATER, STERILE FOR INJ 10 ML VIAL ONE (08:42)
[2025-07-03] MEDS: ceFAZolin 330 MG/ML 1 GM VIAL ONE (08:43)
[2025-07-03] MEDS: MIDAZOLAM HCL 5 MG/ML 1 ML VIAL ONE (09:24)
[2025-07-03] MEDS: ONDANSETRON INJ 2 MG/ML 2 ML VIAL ONE (09:25)
--- NOTE | 2025-07-03 09:28 | Post Anesthesia Assessment ---
Date of Service July 03, 2025 Post Sedation Assessment Vital Signs Temp Pulse Pulse Pulse Resp BP Pulse Ox 07/03/25 07:50 46 L 18 134/55 L 100 07/03/25 03:02 36.7 C 44 L 18 148/64 H 93 07/02/25 23:04 36.9 C 47 L 16 135/57 L 97 07/02/25 22:59 49 L 07/02/25 19:43 36.6 C 49 L 18 134/55 L 97 07/02/25 18:43 47 L 07/02/25 14:23 36.5 C 48 L 16 155/75 H 98 07/02/25 10:41 37 C 48 L 16 153/66 H 97 O2 Del Method 07/03/25 07:50 Room Air 07/03/25 03:02 Room Air 07/02/25 23:04 Room Air 07/02/25 22:59 07/02/25 19:43 Room Air 07/02/25 18:43 07/02/25 14:23 Room Air 07/02/25 10:41 Room Air Recovery Score Activity: Moves 4 extremities Respiration: Deep Breath/Cough Circulation: +/-20-49% PreAnes Value Consciousness: Fully Awake Oxygen Saturation: > 92% On Room Air Discharge Sedation Level of Care: Fast Track Phase II Post Sedation Plan On clinical assessment, the patient appears to have tolerated the sedation without complications. Patient is recovering as anticipated. Patient will continue to be monitored by nursing and may be discharged when sedation discharge criteria are met per below protocol. Upon Completions of procedure up to 15 minutes continue every 5 minute vital signs and the P.A.R. score; then discharge to a Phase I or Fast Track to Phase II per the following guidelines: * Discharge Patient to appropriate Phase II area if PAR is 8 or greater or return to pre- procedure baseline. The post - procedure orders will be as directed. * If PAR score is less than 8 or not return to pre-procedure baseline then patient will follow Phase I monitoring till PAR is reached for Phase II. The Phase I may be done in procedure room or may call to secure a Phase I area. * If naloxone or flumazenil are used for reversal, hold in Phase I for continued monitoring from when last reversal dose was given for a minimum of 60 minutes or longer pending the nurse and/or physician discretion of patient condition before discharge to Phase II. Please call the Sedation Physician to re-evaluate and complete post-note for discharge to Phase II area. Do NOT discharge from procedure sedation or Phase 1 until post- sedation evaluation note is complete by procedure /sedation MD Sedation Discharge Instructions to be given to the patient at discharge to home.
--- NOTE | 2025-07-03 09:28 | Electrophysiology Report ---
Date of Service July 03, 2025 Electrophysiology Procedure Electrophysiology Procedure Report Procedure performed: Implantation of dual-chamber permanent pacemaker left bundle pacing lead Staff java software: Hilton Wood MD Indication: The patient is a 69-year-old gentleman who presented to the hospital with symptomatic bradycardia associated with high degree AV block. She was will be good candidate for permanent pacemaker due to symptomatic nonreversible AV elian dysfunction. Dual-chamber device was selected as she is currently in sinus rhythm and wish to maintain AV synchrony. Procedure in detail: The patient was informed of the risks benefits and alternatives to the intended procedure and she wished to proceed. She was taken to the electrophysiology suite in a fasting state. A preoperative antibiotic had been administered. The patient was monitored electrocardiographically throughout today's procedure and conscious sedation was administered per protocol. The left upper pectoral area was prepped and draped in usual sterile fashion. This area was anesthetized using subcutaneous administration of a xylocaine solution. An incision was made at this site and carried down to the prepectoralis fascia using sharp dissection. Electrocautery was also employed for dissection as well as for hemostasis. A device pocket was fashioned tissues above the pectoralis muscle. Subsequent to this maneuver the left axillary vein was accessed using modified Seldinger technique. A sheath was placed over guidewire and used to facilitate passage of a guiding catheter for mapping of the interventricular septum. Once an appropriate location was identified a pacing lead was advanced into the interventricular septum until the appropriate electrophysiologic characteristics were obtained. At this point the guiding catheter was removed. The proximal portion of the lead was then sutured the prepectoralis fascia using nonabsorbable suture. A sheath was placed over the remaining guidewire and used to facilitate passage of a pacing lead to the right atrium under fluoroscopic guidance. Adequate sensing and threshold parameters were obtained prior to active fixation of this lead to the endocardial surface. The proximal portion of the leads were then sutured the prepectoral fascia using nonabsorbable suture. The device pocket was irrigated with antibiotic solution. The leads were then attached to the device. The device and leads were then placed in the pocket and pocket was closed in 3 layers of absorbable suture. Steri-Strips and sterile dressing were applied. The device was tested noninvasively prior to conclusion the procedure. The patient tolerated procedure well there no immediate complications. Equipment used: New pulse generator: [employer]. Model number: [id number] serial number [id number] Right atrial lead: Graphics Editor [employer]. Model number: [id number] serial number [id number] Right ventricular lead: Graphics Editor [employer]. Model number: [id number] serial number [id number] Measured data: Right atrial lead: P waves measured 2.4 mV. Pacing threshold 1.5 V at 0.4 ms with a pacing appearance of 494 ohms Right ventricular lead: R waves measured 6.9 mV. Pacing threshold was 1 V at 0.4 ms with a pacing impedance of 779 ohms in the bipolar configuration Impression: Successful implantation of dual-chamber permanent pacemaker with left bundle pacing lead [facility] Electrophysiology codes Pacing Procedure 1: Pacin Insert/Replace Pacer A & V PG Moderate Sedation Codes Moderate Sedation Codes Procedure 1: Sedation/Anesthesia: 64648 Mod Sedation by the same physician;Init15 Min Child Age 5 & Up Procedure 2: Sedation/Anesthesia: 26103 Mod Sedation by the same physician; Ea [id number] Minutes
[2025-07-03] MEDS ORDERED: Nursing to Pharmacy Communication SCH (10:30)
--- NOTE | 2025-07-03 11:59 | Hospitalist Progress Note ---
Date of Service July 03, 2025 Assessment & Plan (1) Heart block: Plan: Permanent cardiac pacemaker inserted earlier today, July 03. Appreciate cardiology consultation and recommendations. Free T3 and free T4 levels are normal. Cardiac echo reveals normal left ventricular systolic function with normal ejection fraction. She does have diastolic dysfunction. Moderate left atrial enlargement and moderately severe mitral regurgitation. The right ventricle is mildly dilated with mildly elevated right ventricular systolic pressures. Continue telemetry while. She continues to have palpable left latissimus dorsi tenderness probably from a muscle strain she developed when she bent over to miner pick her grandchild before this admission. (2) Hyperglycemia: Plan: Nonfasting glucose was elevated on admission. Fasting a.m. glucose measurements are unremarkable. Continue sliding scale coverage and ADA diet while hospitalized (3) Acute left flank pain: Plan: Palpable tenderness along left latissimus dorsi. Probably a muscular strain from bending over to miner pick her grandchild before this admission. Heating pad ordered along with as needed tramadol. No evidence of ureteral calculus seen on admission CT scan. (4) Diabetes mellitus, type 2: Plan: Controlled. ADA diet. Sliding scale coverage. Basal insulin therapy. She will resume her usual diabetic management at discharge Plan Hopeful discharge to home tomorrow, July 04 Admission and Anticipated Discharge Date Admission Date: July 01, 2025 Subjective Alert and oriented. She had permanent cardiac pacemaker inserted earlier today, July 03. She continues to have palpable left latissimus dorsi tenderness probably from a strain that occurred when she bent over to miner pick her grandchild. Heating pad ordered along with as needed tramadol. Pacemaker insertion site left upper anterior chest wall is bandaged and unremarkable. Hopefully she can go home tomorrow, July 04 Review of Systems 2 Review of Systems: Constitutionalno fever or chills ENTno blurred vision, no double vision, no epistaxis, no sore throat Respiratoryno cough, no wheezing, no shortness of breath Cardiacno palpitations, no chest pain, no syncope Nelida nausea, vomiting, diarrhea, melena, hematochezia. Constipation. Intermittent left-sided abdominal discomfort GUno urinary retention, no urinary incontinence, no dysuria, no hematuria Musculoskeletalno joint pain. Palpable left latissimus dorsi flank discomfort Skinno bruising, no rashes, no pruritus. Pacemaker insertion site left upper anterior chest wall is bandaged without evidence of any bleeding Neurono isolated weakness, no paresthesia Psychno depression, no anxiety Physical Exam 2 Physical Exam: General-alert and oriented x3, no fever, no chills HEENT-head atraumatic and normocephalic, pupils equal and reactive to light, extraocular muscles intact Neck-no lymphadenopathy or thyromegaly, trachea midline Chest-clear to auscultation. No rales, wheezing or rhonchi Cardiac-regular rate and rhythm, normal S1 and S2 Abdomen-normal bowel sounds, no hepatosplenomegaly. No rebound or guarding. No palpable masses Extremities-no cyanosis, clubbing, or edema Neuro-cranial nerves II through XII intact, motor and sensory function within normal limits, strength symmetrical, no focal deficits Psych-normal affect, normal mood Results & Data Results & Data Vital Signs (Past 12 Hours) Vital Signs Temp Pulse Pulse Resp BP Pulse Ox O2 Del Method 07/03/25 11:36 36.8 C 82 159/73 H 94 Room Air 07/03/25 10:51 36.5 C 88 18 142/75 H 95 Room Air 07/03/25 09:50 82 18 164/78 H 91 Room Air 07/03/25 09:35 82 18 163/86 H 91 Room Air 07/03/25 07:50 46 L 18 134/55 L 100 Room Air 07/03/25 03:02 36.7 C 44 L 18 148/64 H 93 Room Air Laboratory Results 07/03/25 05:45 07/03/25 05:45 PG Care Time/CCT Total # of Minutes Spent Total Time Spent with Patient: Total time spent is greater than 50% in coordination of care (as documented) at patient's floor/unit and/or counseling patient: Coding Level of Care Code 87360 SUB INP/OBS CARE 3/50MIN Diagnoses Heart block I45.9 Hyperglycemia R73.9 Acute left flank pain R10.A2 Diabetes mellitus, type 2 E11.9
--- NOTE | 2025-07-03 15:28 | XRay Report ---
Chest x-ray, 2 views History: Evaluate for pneumothorax Comparison: None Technique: 2 views of the chest, PA and lateral Findings: No pneumothorax. Small bilateral pleural effusions. Left chest wall dual-lead AICD. The heart size appears within normal limits. No bony or soft tissue abnormality. Degenerative changes of the thoracic spine. Impression: No pneumothorax. Small pleural effusions Electronically signed by Hilton Jung 07-03-2025 3:28 PM
--- NOTE | 2025-07-03 18:51 | Electrocardiogram Report ---
Test Reason : Blood Pressure : */* mmHG Vent. Rate : 77 BPM Atrial Rate : 77 BPM P-R Int : 156 ms QRS Dur : 124 ms QT Int : 442 ms P-R-T Axes : 54 -40 104 degrees QTcB Int : 500 ms Atrial-sensed ventricular-paced rhythm Abnormal ECG When compared with ECG of 01-Jul-2025 12:27, Electronic ventricular pacemaker has replaced Sinus rhythm Vent. rate has increased by 28 bpm Confirmed by Hilton Wood ([id number]) on 07/03/2025 6:50:34 PM Referred By: REFERRED SELF Confirmed By: Hilton Wood
[2025-07-04 06:39] LABS: Hematocrit (blood only) 34.3 % (37.0-47.0); Hemoglobin 11.6 g/dL (12.0-16.0); Immature Granulocytes # (auto) 0.02 K/uL (0.01-0.20); Immature Granulocytes % (auto) 0.3 %; Mean Corpuscular Hemoglobin 28.7 pg (25.0-34.0); Mean Corpuscular Volume 84.9 fL (80.0-100.0); Platelet Count 201 K/uL (130-400); RDW Standard Deviation 36.5 fL (36.4-46.3); Red Blood Count 4.04 M/uL (4.20-5.40); White Blood Count 6.94 K/ul (4.8-10.8)
[2025-07-04 07:04] VITALS: BP 166/80; RESP 18; TEMP 98.4; O2SAT 95
[2025-07-04 07:26] LABS: Anion Gap 6.0 (3-11); Blood Urea Nitrogen 13.0 mg/dl (6-23); Calcium 9.1 mg/dl (8.6-10.3); Carbon Dioxide 29.0 mmol/L (21-32); Chloride 104.0 mmol/L (98-107); Creatinine Clr Calc Pharmacy 64.1 ml/min; Glucose 179.0 mg/dl (70-99(Fasting)); Potassium 4.4 mmol/L (3.5-5.1); Sodium 139.0 mmol/L (136-145)
--- NOTE | 2025-07-04 08:48 | Discharge Summary ---
Discharge Summary Date of Service July 04, 2025 Principal Dx & Hospital Course #1 = Principal Diagnosis (1) Heart block: Permanent cardiac pacemaker inserted on July 03. Appreciate cardiology consultation and recommendations. Free T3 and free T4 levels are normal. Cardiac echo reveals normal left ventricular systolic function with normal ejection fraction. She does have diastolic dysfunction. Moderate left atrial enlargement and moderately severe mitral regurgitation. The right ventricle is mildly dilated with mildly elevated right ventricular systolic pressures. Continue telemetry while hospitalized. She was treated for left latissimus dorsi tenderness probably from a muscle strain she developed when she bent over to pickle processor her grandchild before this admission. (2) Hyperglycemia: Nonfasting glucose was elevated on admission. Fasting a.m. glucose measurements are unremarkable. Continue sliding scale coverage and ADA diet while hospitalized. Resume usual diabetic management at discharge (3) Acute left flank pain: Palpable tenderness along left latissimus dorsi. Probably a muscular strain from bending over to pickle processor her grandchild before this admission. Heating pad and tramadol have helped. She will continue these measures after discharge. No evidence of ureteral calculus seen on admission CT scan. (4) Diabetes mellitus, type 2: Controlled. ADA diet. Sliding scale coverage. Basal insulin therapy. She will resume her usual diabetic management at discharge Plan Home today, July 04 Admission HPI Per Admitting Provider several different issues but primary reason she came to ER was L flank pain. notes that at first about 2 weeks ago she had R sided mid back sharp stabbing pain - her PCP wondered if it was going to evolve into shingles and started valtred. "they told me the shingles went inside instead" but then she noted that the pain on the R side evolved down her paraspinals, not across a dermatome. and no rash has evolved despite that pain being there for ~2wks. then last ~1-2 days (hard to get total clarity from her story) she started with left back/flank pain - sharp stabbing and intense - movement makes it worse. 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 no fevers, chills sweats no dysuria/frequency/urgency does have constipation - notes that she won't have BM for ~3-4 days then takes ex-lax, then has BM, then repeat cycle sugars running high for quite a while. does not know what last A1c was - but notes fastings often ~70-110, but then the rest of the day she'll frequently cross 300 or more. quick diet recall yields a lot of simple carbs. also found to be in Mobitz II. told er doc she gets significant BRIDGES going up steps Discharge Exam General-alert and oriented x3, no fever, no chills HEENT-head atraumatic and normocephalic, pupils equal and reactive to light, extraocular muscles intact Neck-no lymphadenopathy or thyromegaly, trachea midline Chest-clear to auscultation. No rales, wheezing or rhonchi. Pacemaker insertion site is clean and dry without hematoma formation Cardiac-regular rate and rhythm, normal S1 and S2 Abdomen-normal bowel sounds, no hepatosplenomegaly. No rebound or guarding. No palpable masses Extremities-no cyanosis, clubbing, or edema Neuro-cranial nerves II through XII intact, motor and sensory function within normal limits, strength symmetrical, no focal deficits Psych-normal affect, normal mood Discharge Plan Discharge Items Patient Disposition: Home - Self-Care Reason For Visit: BACK PAIN, BRADYCARDIA Discharge Diagnosis: Mobitz 2 second-degree AV block, left flank muscle strain Condition on Discharge: Good Activity: As commented below Activity Comment: Wear left arm sling until cleared by cardiology. Avoid any heavy lifting Non-emergency contact: Primary Care Provider and Painter Rough Call non-emergency contact if: you have any medication questions and your symptoms worsen Follow-up/Referrals: Megan Wright PA-C [Physician Computer Installation Engineer] - 07/10/25 11:15 am Libertad Mendes CRNP [Primary Care Provider] - Diet: Carb Consistent or DM2 and Heart Healthy Addtl Attending Provider Instructions: Wear left arm sling until cleared by cardiology. Use tramadol as needed for pain. A prescription has been sent to your pharmacy. Apply heat 2 or 3 times a day for 20 minutes to the left lateral back pain until muscle pain is resolved Pending Studies at Discharge: No Stand-Alone Forms: My [employer], Smoking Cessation Medications and MD Order Prescriptions: New tramadol 50 mg Tablet 50 mg PO Q4H PRN (Reason: pain) Qty: 20 0RF oxycodone 5 mg tablet 5 mg PO Q6H PRN (Reason: pain) Qty: 20 0RF Continued multivitamin Tablet 1 tab PO QAM losartan 50 mg Tablet 50 mg PO QAM glipizide 10 mg Tablet Extended Release 24hr 10 mg PO BID sulfasalazine 500 mg Tablet,Delayed Release (Dr/Ec) 0.5 g PO BID metformin 1,000 mg Tablet 1,000 mg PO BID aspirin 81 mg Tablet,Chewable 81 mg PO QAM rosuvastatin 10 mg Tablet 10 mg PO HS insulin glargine [Lantus Solostar U-100 Insulin] 100 unit/mL (3 mL) Insulin Pen 14 unit SUBCUT HS turmeric 400 mg Capsule 400 mg PO QAM Discharge Orders: Discharge Order (Routine); Ordered 07/04/25 Ordered By: Tony Sandoval Admission Data Admit Date/Time: 07/01/25 15:00 Attending Provider: Tony Sandoval Admit Provider: Raimundo Velásquez Primary Care Provider: Libertad Mendes Other Providers: Gerald Ling; Raimundo Velásquez Hospital Stay Data Consultations 07/01/25 14:25 ED Decision to Admit Stat 07/01/25 15:00 Consult Cardiology Routine Procedures Performed Operation Date: 07/03/25 08:00 Actual Procedures p Pacer with A/V Leads (Dual) - Hilton Wood MD Diagnostic Imagining Performed 07/01/25 12:22 CT abd pelvis IV con only Stat 07/03/25 07:00 EP Lab Images for PACS ONCE Pending Results Patient Have Any Pending Studies at Discharge: No Discharge Instructions Given to Patient (Per Discharging Provider) Wear left arm sling until cleared by cardiology. Use tramadol as needed for pain. A prescription has been sent to your pharmacy. Apply heat 2 or 3 times a day for 20 minutes to the left lateral back pain until muscle pain is resolved Total Time Total Time Spent Total Time Spent (In Minutes): 45 minutes. Total time included patient exam, discharge planning, medication reconciliation Coding Level of Care Code 28873 INP/OBS DISCH >30 MIN Diagnoses Heart block I45.9 Hyperglycemia R73.9 Acute left flank pain R10.A2 Diabetes mellitus, type 2 E11.9
[2025-07-04 10:10] VITALS: PULSE 82
--- NOTE | 2025-07-04 10:30 | Cardiology Progress Note ---
Date of Service July 04, 2025 Assessment & Plan (1) Heart block: Plan 1. Heart block: Status post implantation of dual-chamber permanent pacemaker yesterday. No evident complication. From my standpoint she will be safe for discharge. She should refrain from lifting left arm above the shoulder behind the neck for 6 weeks. She is to keep her wound dry and her Steri-Strips intact until we can see her next week in our clinic. 2. Mitral regurgitation: She has fairly significant mitral regurgitation. No overt symptoms. Overall LV systolic function still normal. However, we will need to follow this over time. Admission and Anticipated Discharge Date Admission Date: July 01, 2025 Subjective This morning patient was feeling well. She is up to the bathroom getting ready for discharge. She states that this morning she was mildly dizzy and had some achiness in her chest, but this appears to have all resolved. Physical Exam Physical Exam: Alert. Oriented. Answered all questions appropriately Normal respiratory effort Device implant site with some ecchymosis but no overt drainage. No erythema or hematoma. Results & Data Vital Signs (Past 12 Hours) Vital Signs Temp Pulse Pulse Resp BP BP Pulse Ox 07/04/25 10:05 36.9 C 82 81 18 166/80 H 167/78 H 95 07/04/25 07:02 36.9 C 81 18 166/80 H 95 07/04/25 03:43 36.6 C 86 20 167/78 H 97 07/03/25 23:30 36.7 C 81 18 160/75 H 94 O2 Del Method 07/04/25 10:05 07/04/25 07:02 Room Air 07/04/25 03:43 Room Air 07/03/25 23:30 Room Air Laboratory Results Abnormal Lab Results 07/03/25 07/03/25 07/03/25 11:36 16:04 20:26 WBC RBC Hgb Hct MCV MCH MCHC RDW Std Deviation RDW Coeff of David Plt Count MPV Immature Gran % (Auto) Neut % (Auto) Lymph % (Auto) Custer % (Auto) Eos % (Auto) Baso % (Auto) Neut # (Auto) Lymph # (Auto) [place] # (Auto) Eos # (Auto) Baso # (Auto) Immature Gran # (Auto) Sodium Potassium Chloride Carbon Dioxide Anion Gap BUN Creatinine Est Cr Clr Drug Dosing eGFR BUN/Creatinine Ratio Glucose POC Glucose 198 H 165 H 140 H Calcium 07/04/25 07/04/25 06:07 07:06 WBC 6.94 RBC 4.04 L Hgb 11.6 L Hct 34.3 L MCV 84.9 MCH 28.7 MCHC 33.8 RDW Std Deviation 36.5 RDW Coeff of David 11.9 Plt Count 201 MPV 9.7 Immature Gran % (Auto) 0.3 Neut % (Auto) 66.3 Lymph % (Auto) 20.7 C[place] % (Auto) 9.2 Eos % (Auto) 3.2 Baso % (Auto) 0.3 Neut # (Auto) 4.60 Lymph # (Auto) 1.44 Custer # (Auto) 0.64 H Eos # (Auto) 0.22 Baso # (Auto) 0.02 Immature Gran # (Auto) 0.02 Sodium 139 Potassium 4.4 Chloride 104 Carbon Dioxide 29 Anion Gap 6 BUN 13 Creatinine 0.74 Est Cr Clr Drug Dosing 64.1 eGFR 86.44 BUN/Creatinine Ratio 17.6 Glucose 179 H POC Glucose 163 H Calcium 9.1 Diagnostic Findings Chest x-ray demonstrated stable lead position without pneumothorax Device interrogation revealed normal function of both leads.
== END 2025-07-04 12:10 | disposition home or self-care (01) | DRG 244 ==
LOC: ED 11:49 → 2S 15:00 → SUATTDRO 15:00 → 2S 15:39